=== PATIENT | male | born 1965 | race African-American/Black ===

== ENCOUNTER 2019-04-12 05:55 | Inpatient (IN) ==
[2019-04-12 06:19] LABS: Basophils % 0.5 % (0.0-0.8); Eosinophils # 0.2 10*3/uL (0.0-0.87); Eosinophils % 3.4 % (0.00-10.9); Hemoglobin 14.2 GM/DL (14.0-18.0); Immature Granulocytes % 0.3 %; Immature Granulocytes Absolute 0.02 #; Lymphocytes # 1.5 10*3/uL (1.4-4.0); Lymphocytes % 24.6 % (21.2-54.2); Mean Corpuscular HGB Conc 30.9 GM/DL (32-36); Mean Corpuscular Volume 89.1 FL (87-102); Mean Platelet Volume 12.1 FL (9.6-12.0); Monocytes % 8.9 % (1.7-12.7); Neutrophils % 62.3 % (38.7-73.9); Platelet Count 167 T/CUMM (130-400); Red Blood Count 5.16 MC/CUMM (3.8-5.5); Red Cell Distribution Width 16.4 % (9.3-17.3); White Blood Count 6.1 T/CUMM (4-12)
[2019-04-12] MEDS ORDERED: FUROSEMIDE 40 MG/4 ML VIAL IV STA (06:21)
[2019-04-12] MEDS ORDERED: niCARdipine 25 MG/10 ML VIAL IV ONE (06:27)
[2019-04-12 06:29] LABS: ABG Base Excess 2.5 MMOL/L (-2.5-2.5); ABG HCO3 26.4 MMOL/L (20-26); ABG Oxygen Saturation 90.4 % (95-100); ABG PH 7.457 (7.35-7.45); ABG PO2 59.3 MM HG (80-95); ABG TCO2 22.3 MMOL/L (23-27); Allen Test Positive
[2019-04-12 06:30] LABS: INR 1.1; PT Patient Result 12.4 SECS; Partial Thromboplastin Time 27.4 SECS (0-40)
[2019-04-12] MEDS: niCARdipine INJ 25 MG in SODIUM CHLORIDE 0.9% 240 ML IV SCH ×3 (06:30→18:11)
[2019-04-12 07:00] LABS: Albumin 3.4 G/DL (3.4-5.0); Bilirubin,Total 0.4 MG/DL (0.2-1.0); Calcium 8.6 MG/DL (8.5-10.1); Total Protein 8.1 G/DL (6.4-8.3)
[2019-04-12 07:45] LABS: Barbiturates Screen,Urine Negative (Negative); Benzodiazepines Screen,Urine Negative (Negative); Cannabinoid Screen,Urine Negative (Negative); Opiate Screen,Urine Negative (Negative); Phencyclidine Screen,Urine Negative (Negative)
[2019-04-12] MEDS ORDERED: ACETAMINOPHEN 325 MG TABLET PO PRN (15:04)
[2019-04-12] MEDS ORDERED: ONDANSETRON 4 MG/2 ML VIAL IV PRN (15:04)
[2019-04-12] MEDS ORDERED: ENOXAPARIN 40 MG/0.4 ML SYRINGE SUBCUT SCH (15:04)
[2019-04-12] MEDS: PANTOPRAZOLE 40 MG TABLET PO SCH (15:28)
[2019-04-12] MEDS ORDERED: MORPHINE 4 MG/1 ML VIAL IV PRN (15:47)
[2019-04-12 17:16] LABS: Troponin I < 0.015 NG/ML (0.00-0.045)
[2019-04-12] MEDS: APIXABAN 5 MG TABLET PO SCH (21:13)
[2019-04-12] MEDS: CARVEDILOL 25 MG TABLET PO SCH (21:14)
[2019-04-12] MEDS: ATORVASTATIN 40 MG TABLET PO SCH (21:14)
[2019-04-12] MEDS: AMIODARONE 200 MG TABLET PO SCH (21:14)
[2019-04-13 05:54] LABS: Basophils % 0.6 % (0.0-0.8); Eosinophils # 0.2 10*3/uL (0.0-0.87); Eosinophils % 4.4 % (0.00-10.9); Hematocrit 42.8 VOL% (42.0-52.0); Hemoglobin 13.7 GM/DL (14.0-18.0); Immature Granulocytes % 0.2 %; Immature Granulocytes Absolute 0.01 #; Lymphocytes # 1.6 10*3/uL (1.4-4.0); Lymphocytes % 31.5 % (21.2-54.2); Mean Platelet Volume 12.1 FL (9.6-12.0); Monocytes % 11.6 % (1.7-12.7); Neutrophils % 51.7 % (38.7-73.9); Platelet Count 165 T/CUMM (130-400); Red Blood Count 4.92 MC/CUMM (3.8-5.5); Red Cell Distribution Width 16.4 % (9.3-17.3)
[2019-04-13 06:07] LABS: Blood Urea Nitrogen 17 MG/DL (7-18); Calcium 8.8 MG/DL (8.5-10.1); Glucose 106 MG/DL (74-106); Troponin I < 0.015 NG/ML (0.00-0.045)
[2019-04-13 06:08] LABS: Risk Ratio 2.46; VLDL CHOLESTEROL 12.8 MG/DL
[2019-04-13] MEDS: niCARdipine INJ 25 MG in SODIUM CHLORIDE 0.9% 240 ML IV SCH (07:32)
[2019-04-13] MEDS: APIXABAN 5 MG TABLET PO SCH ×2 (09:42→20:38)
[2019-04-13] MEDS: POTASSIUM CHLORIDE 20 MEQ TABLET PO SCH ×4 (09:42→16:30)
[2019-04-13] MEDS: AMIODARONE 200 MG TABLET PO SCH ×2 (09:42→20:38)
[2019-04-13] MEDS: PANTOPRAZOLE 40 MG TABLET PO SCH (09:42)
[2019-04-13] MEDS: LISINOPRIL 10 MG TABLET PO SCH (09:42)
[2019-04-13] MEDS: ASPIRIN EC 81 MG TABLET PO SCH (09:43)
[2019-04-13] MEDS: CARVEDILOL 25 MG TABLET PO SCH ×2 (09:43→20:38)
[2019-04-13] MEDS: DILTIAZEM CD 120 MG CAPSULE PO SCH (09:43)
[2019-04-13] MEDS ORDERED: MORPHINE 4 MG/1 ML VIAL IV PRN (10:13)
[2019-04-13] MEDS ORDERED: MORPHINE 4 MG/1 ML VIAL IV SCH (12:00)
[2019-04-13] MEDS: FUROSEMIDE 40 MG TABLET PO SCH (16:31)
[2019-04-13] MEDS: ATORVASTATIN 40 MG TABLET PO SCH (20:38)
[2019-04-14 05:35] LABS: Calcium 8.7 MG/DL (8.5-10.1); Osmolality,Calculated 292.6 MOS/KG (273-304)
[2019-04-14] MEDS: ASPIRIN EC 81 MG TABLET PO SCH (09:45)
[2019-04-14] MEDS: AMIODARONE 200 MG TABLET PO SCH (09:46)
[2019-04-14] MEDS: LISINOPRIL 10 MG TABLET PO SCH (09:46)
[2019-04-14] MEDS: PANTOPRAZOLE 40 MG TABLET PO SCH (09:46)
[2019-04-14] MEDS: CARVEDILOL 25 MG TABLET PO SCH (09:46)
[2019-04-14] MEDS: DILTIAZEM CD 120 MG CAPSULE PO SCH (09:46)
[2019-04-14] MEDS: APIXABAN 5 MG TABLET PO SCH (09:46)
[2019-04-14] MEDS: FUROSEMIDE 40 MG TABLET PO SCH (09:46)
[2019-04-14] MEDS: POTASSIUM CHLORIDE 20 MEQ TABLET PO SCH (09:48)
[2019-04-14 12:11] VITALS: BP 165/98
== END 2019-04-14 12:15 | disposition home health service (06) | DRG 291 ==
LOC: N.ED 05:55 → N.EDINP 08:22 → SUATTDRO 08:22 → N.CC 13:31 → N.5E 04-13 14:38
PROVIDERS: ADMIT Internal Medicine; ATTEND Internal Medicine

== ENCOUNTER 2019-09-10 23:27 | Inpatient (IN) ==
[2019-09-11] MEDS ORDERED: NITROGLYCERIN SL 0.4 MG TABLET SL STA (00:02)
[2019-09-11] MEDS ORDERED: ALBUTEROL/IPRATROPIUM 3 ML NEB RESP TX STA (00:02)
[2019-09-11] MEDS ORDERED: FUROSEMIDE 40 MG/4 ML VIAL IV STA (00:02)
[2019-09-11] MEDS ORDERED: FUROSEMIDE 100 MG/10 ML VIAL ONE (00:03)
[2019-09-11] MEDS ORDERED: NITROGLYCERIN SL 0.4 MG TABLET SL ONE (00:03)
[2019-09-11 00:17] LABS: ABG Base Excess 0.3 MMOL/L (-2.5-2.5); ABG HCO3 22.9 MMOL/L (20-26); ABG Oxygen Saturation 74.4 % (95-100); ABG PCO2 31.8 MM HG (35-48); ABG PH 7.476 (7.35-7.45); ABG TCO2 23.9 MMOL/L (23-27)
[2019-09-11 00:19] LABS: Basophils % 0.8 % (0.0-0.8); Eosinophils # 0.2 10*3/uL (0.0-0.87); Eosinophils % 4.3 % (0.00-10.9); Hematocrit 45.1 VOL% (42.0-52.0); Hemoglobin 14.3 GM/DL (14.0-18.0); Immature Granulocytes % 0.4 %; Immature Granulocytes Absolute 0.02 #; Lymphocytes # 1.4 10*3/uL (1.4-4.0); Lymphocytes % 27.2 % (21.2-54.2); Mean Corpuscular HGB Conc 31.7 GM/DL (32-36); Mean Corpuscular Volume 89.8 FL (87-102); Mean Platelet Volume 11.8 FL (9.6-12.0); Neutrophils % 61.3 % (38.7-73.9); Platelet Count 195 T/CUMM (130-400); Red Blood Count 5.02 MC/CUMM (3.8-5.5); Red Cell Distribution Width 16.3 % (9.3-17.3); White Blood Count 5.1 T/CUMM (4-12)
[2019-09-11 00:20] LABS: ABG PO2 39.9 MM HG (80-95)
[2019-09-11 00:24] LABS: Albumin 3.4 G/DL (3.4-5.0); Bilirubin,Total 0.4 MG/DL (0.2-1.0); Calcium 8.3 MG/DL (8.5-10.1); Total Protein 8.1 G/DL (6.4-8.3)
[2019-09-11] MEDS ORDERED: ASPIRIN CHEW 81 MG TABLET PO STA (00:49)
[2019-09-11] MEDS ORDERED: POTASSIUM CHLORIDE 20 MEQ TABLET PO STA (00:49)
[2019-09-11] MEDS ORDERED: MAGNESIUM SULF RIDER 4 GM in PREMIX 1 EACH IV PRN (04:42)
[2019-09-11] MEDS ORDERED: MORPHINE 4 MG/1 ML VIAL IV PRN (04:42)
[2019-09-11] MEDS ORDERED: ONDANSETRON 4 MG/2 ML VIAL IV PRN (04:42)
[2019-09-11] MEDS ORDERED: ALBUTEROL 2.5 MG/3 ML NEB RESP TX PRN (04:42)
[2019-09-11] MEDS ORDERED: DOCUSATE SODIUM 100 MG CAPSULE PO PRN (04:42)
[2019-09-11] MEDS ORDERED: NITROGLYCERIN SL 0.4 MG TABLET SL PRN (04:42)
[2019-09-11] MEDS ORDERED: MAGNESIUM SULF RIDER 2 GM in PREMIX 1 EACH IV PRN (04:42)
[2019-09-11] MEDS ORDERED: PNEUMOCOCCAL VACCINE (23 VALENT) 0.5 ML VIAL IM ONE (05:07)
[2019-09-11] MEDS ORDERED: carvediloL 25 MG TABLET PO SCH (08:00)
[2019-09-11] MEDS: POTASSIUM CHLORIDE 20 MEQ TABLET PO SCH (09:28)
[2019-09-11] MEDS: AMIODARONE 200 MG TABLET PO SCH ×2 (09:28→20:45)
[2019-09-11] MEDS: APIXABAN 5 MG TABLET PO SCH ×2 (09:28→20:45)
[2019-09-11] MEDS: FUROSEMIDE 40 MG/4 ML VIAL IV SCH ×2 (09:28→17:10)
[2019-09-11] MEDS: ASPIRIN EC 81 MG TABLET PO SCH (09:28)
[2019-09-11 11:27] LABS: ABG Base Excess 2.9 MMOL/L (-2.5-2.5); ABG HCO3 26.9 MMOL/L (20-26); ABG Oxygen Saturation 94.7 % (95-100); ABG PO2 69.3 MM HG (80-95); ABG TCO2 22.4 MMOL/L (23-27); Allen Test Positive
[2019-09-11] MEDS ORDERED: FUROSEMIDE 40 MG/4 ML VIAL IV ONE (11:30)
[2019-09-11] MEDS: carvediloL 12.5 MG TABLET PO SCH (17:10)
[2019-09-11] MEDS: ATORVASTATIN 40 MG TABLET PO SCH (20:45)
[2019-09-12 06:23] LABS: Basophils % 0.4 % (0.0-0.8); Eosinophils # 0.2 10*3/uL (0.0-0.87); Hematocrit 40.5 VOL% (42.0-52.0); Hemoglobin 12.9 GM/DL (14.0-18.0); Immature Granulocytes % 0.3 %; Immature Granulocytes Absolute 0.03 #; Lymphocytes # 1.8 10*3/uL (1.4-4.0); Lymphocytes % 19.9 % (21.2-54.2); Mean Corpuscular HGB Conc 31.9 GM/DL (32-36); Mean Corpuscular Volume 89.6 FL (87-102); Mean Platelet Volume 11.3 FL (9.6-12.0); Monocytes % 11.1 % (1.7-12.7); Neutrophils % 66.3 % (38.7-73.9); Platelet Count 174 T/CUMM (130-400); Red Blood Count 4.52 MC/CUMM (3.8-5.5); Red Cell Distribution Width 16.8 % (9.3-17.3); White Blood Count 9.1 T/CUMM (4-12)
[2019-09-12 06:49] LABS: Calcium 8.1 MG/DL (8.5-10.1); Osmolality,Calculated 291.6 MOS/KG (273-304)
[2019-09-12] MEDS: POTASSIUM CHLORIDE 20 MEQ TABLET PO SCH (08:54)
[2019-09-12] MEDS: FUROSEMIDE 40 MG/4 ML VIAL IV SCH ×2 (08:54→15:41)
[2019-09-12] MEDS: APIXABAN 5 MG TABLET PO SCH ×2 (08:54→21:17)
[2019-09-12] MEDS: ASPIRIN EC 81 MG TABLET PO SCH (08:55)
[2019-09-12] MEDS: carvediloL 12.5 MG TABLET PO SCH ×2 (08:55→16:22)
[2019-09-12] MEDS: AMIODARONE 200 MG TABLET PO SCH ×2 (08:55→21:17)
[2019-09-12] MEDS: ATORVASTATIN 40 MG TABLET PO SCH (21:17)
[2019-09-13 04:48] LABS: Basophils % 0.3 % (0.0-0.8); Eosinophils # 0.2 10*3/uL (0.0-0.87); Eosinophils % 2.4 % (0.00-10.9); Hematocrit 41.9 VOL% (42.0-52.0); Hemoglobin 13.2 GM/DL (14.0-18.0); Immature Granulocytes % 0.2 %; Immature Granulocytes Absolute 0.02 #; Lymphocytes # 1.3 10*3/uL (1.4-4.0); Lymphocytes % 15.6 % (21.2-54.2); Mean Corpuscular HGB Conc 31.5 GM/DL (32-36); Monocytes % 12.3 % (1.7-12.7); Neutrophils % 69.2 % (38.7-73.9); Platelet Count 197 T/CUMM (130-400); Red Blood Count 4.71 MC/CUMM (3.8-5.5); Red Cell Distribution Width 16.4 % (9.3-17.3); White Blood Count 8.6 T/CUMM (4-12)
[2019-09-13 05:07] LABS: Calcium 8.3 MG/DL (8.5-10.1)
[2019-09-13] MEDS: AMIODARONE 200 MG TABLET PO SCH (08:44)
[2019-09-13] MEDS: ASPIRIN EC 81 MG TABLET PO SCH (08:44)
[2019-09-13] MEDS: POTASSIUM CHLORIDE 20 MEQ TABLET PO SCH (08:45)
[2019-09-13] MEDS: APIXABAN 5 MG TABLET PO SCH (08:45)
[2019-09-13] MEDS: FUROSEMIDE 40 MG/4 ML VIAL IV SCH (08:46)
[2019-09-13] MEDS: carvediloL 12.5 MG TABLET PO SCH (09:09)
[2019-09-13 12:08] VITALS: BP 152/84
== END 2019-09-13 15:11 | disposition home health service (06) | DRG 291 ==
LOC: EDUNIT# → EDBD → N.ED 23:27 → SUATTDRO 09-11 04:04 → N.EDINP 09-11 04:04 → N.ICU 09-11 04:35 → N.2E 09-11 13:39
PROVIDERS: ADMIT Family Medicine; ATTEND Internal Medicine